=== PATIENT | female | born 1975 | race Caucasian/White ===

== ENCOUNTER 2019-02-25 13:10 | Emergency (ER) | payer MEDICAID ==
[2019-02-25] MEDS ORDERED: Ibuprofen 800 MG Tab ONE (13:30)
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
== END 2019-02-25 14:39 | disposition home or self-care (01) ==
LOC: LB.ED 13:10
DX: M70.21 Olecranon bursitis, right elbow (principal); M93.929 Osteochondropathy, unspecified, unspecified upper arm
CPT/HCPCS: 99283; A9270-GY

== ENCOUNTER 2019-10-26 00:02 | Emergency (ER) | payer MEDICAID ==
[2019-10-26] MEDS ORDERED: LORazepam 1 MG Tab PO ONE (00:15)
[2019-10-26] MEDS ORDERED: Ketorolac 60 MG/2 ML SDV IM ONE (00:16)
[2019-10-26] MEDS ORDERED: Diphtheria,Pertussis(Acell),Tetanus Vaccine 0.5 ML SDV IM ONE (00:16)
--- NOTE | 2019-10-26 00:23 | EDM.PDOC ---
ED HPI GENERAL MEDICAL PROBLEM - General Stated Complaint: stubbed small toe space on left Time Seen by Provider: 10/26/19 00:05 Source of Information: Reports: Patient History Limitations: Reports: Other (anxious) - History of Present Illness INITIAL COMMENTS - FREE TEXT/NARRATIVE: Iesha was well until 10 minutes prior to arrival when she was walking and her foot struck the bottom part of a trash can where the pedal connects to open the lid. It is old and the actual pedal itself is not present, just a metal bar where it would be mounted. She had severe pain and bleeding from the 5th interspace. - Related Data Allergies Allergy/AdvReac Type Severity Reaction Status Date / Time Penicillins Allergy Unknown Other Verified 10/26/19 00:50 Home Meds: Home Meds NK [No Known Home Meds] 02/25/19 [History] ED ROS GENERAL - Review of Systems Review Of Systems: See Below Musculoskeletal: Reports: Foot Pain Skin: Reports: Wound Neurological: Reports: No Symptoms Psychiatric: Reports: Anxiety ED EXAM, GENERAL - Physical Exam Exam: See Below Exam Limited By: Other (anxiety) General Appearance: Alert, WD/WN, Anxious Respiratory/Chest: No Respiratory Distress Cardiovascular: Normal Peripheral Pulses Extremities: Normal Capillary Refill, Other (dried blood just medial to 5th toe ray) Skin Exam: Warm, Dry, Other (inspection between toes reveals small puncture wound, this is cleansed and palpation throughout does not reproduce any bony tenderness) Course - Orders/Labs/Meds Orders: Active Orders 24 hr Category Date Time Status Vaccines to be Administered [RC] PER UNIT ROUTINE Care 10/26/19 00:17 Active Toes Fifth Digit Lt T4 [CR] Stat Exams 10/26/19 00:26 Ordered Meds: Medications Discontinued Medications Generic Name Dose Route Start Last Admin Trade Name Freq PRN Reason Stop Dose Admin Diphtheria/Tetanus/Acell Pertussis 0.5 ml 10/26/19 00:16 10/26/19 00:27 Boostrix IM 10/26/19 00:17 0.5 ml .ONCE ONE Administration Ketorolac Tromethamine 60 mg 10/26/19 00:16 10/26/19 00:21 Toradol IM 10/26/19 00:17 60 mg ONETIME ONE Administration Lorazepam 2 mg 10/26/19 00:15 10/26/19 00:20 Ativan PO 10/26/19 00:16 2 mg ONETIME ONE Administration - Radiology Interpretation Free Text/Narrative:: Foot XR appears negative for fx at bedside Departure - Departure Time of Disposition: 01:00 Disposition: Home, Self-Care 01 Clinical Impression: Puncture wound - Discharge Information Instructions: RICE Therapy for Routine Care of Injuries, [id number] Forms: ED Department Discharge - My Orders Last 24 Hours: My Active Orders 10/26/19 00:17 Vaccines to be Administered [RC] PER UNIT ROUTINE 10/26/19 00:26 Toes Fifth Digit Lt T4 [CR] Stat - Assessment/Plan Last 24 Hours: My Active Orders 10/26/19 00:17 Vaccines to be Administered [RC] PER UNIT ROUTINE 10/26/19 00:26 Toes Fifth Digit Lt T4 [CR] Stat Plan: Encouraged watching carefully and returning with any sx of infection or ongoing pain
[2019-10-26] MEDS ORDERED: traMADol 50 MG Tab ONE (01:00)
[2019-10-26] MEDS ORDERED: Ciprofloxacin 500 MG Tab ONE (01:00)
[2019-10-26] MEDS ORDERED: Bacitracin/Neomycin/Polymyxin B Oint 0.9 GM U/D Packet ONE (01:19)
[2019-10-26] MEDS ORDERED: Bacitracin/Neomycin/Polymyxin B Oint 0.9 GM U/D Packet TOP ONE (01:19)
--- NOTE | 2019-10-26 14:50 | CR ---
DATE OF SERVICE: 10/26/19 CLINICAL DATA: stubbed toe LEFT 5TH TOE: There is soft tissue swelling adjacent to the distal phalanx. No acute fracture or dislocation. [id number] MTDD
== END 2019-10-26 01:17 | disposition home or self-care (01) ==
LOC: LB.ED 00:02
DX: S91.135A Puncture wound without foreign body of left lesser toe(s) without damage to nail, initial encounter (principal); Z88.0 Allergy status to penicillin; Z23 Encounter for immunization; W22.09XA Striking against other stationary object, initial encounter; Y93.01 Activity, walking, marching and hiking
CPT/HCPCS: 73660; 90471; 90715; 96372; 99282; 99283; A9270; J1885

== ENCOUNTER 2020-04-13 21:23 | Emergency (ER) | payer MEDICAID ==
[2020-04-13] MEDS ORDERED: Ketorolac 60 MG/2 ML SDV IM ONE (21:40)
--- NOTE | 2020-04-14 12:20 | CR ---
Date of Service: 04/13/20 Clinical Data: left posterior chest wall pain PA AND LATERAL CHEST: No priors. The heart size is normal. The lungs are clear. No pneumothorax. No pleural effusions. No displaced fractures. There is a sclerotic density noted in the proximal right humerus. Views of the shoulder are recommended to further evaluate this. No other significant findings. [id number] MTDR
--- NOTE | 2020-05-27 07:11 | ER ---
HISTORY OF PRESENT ILLNESS: A 44-year-old lady here with complaints of rib pain on the left posterior chest wall that started today. She denies any falls or injuries. She has not done any activities that could cause rib pain. The patient denies feeling sick. She has not been running a fever. She has not been coughing. OBJECTIVE: GENERAL APPEARANCE: The patient is awake and alert. No obvious respiratory distress. VITAL SIGNS: Reviewed as listed. LUNGS: Clear to auscultation. Deep breathing does slightly induce pain in the left posterior chest wall. Palpation of the left posterior chest wall also just mildly reproduces pain. SKIN: Intact without any discoloration or swelling. CARDIAC: Heart sounds distinct without murmurs. LABORATORY DATA AND X-RAY: Chest x-ray is obtained and is normal. DIAGNOSIS: Chest wall pain. TREATMENT PLAN: [id number] medications, Tylenol and ibuprofen were discussed. The patient is to do light duty activities for a couple of days and then start increasing activities as tolerated. She can apply ice or heat as needed and follow up is p.r.n. RENETTA/JACOB /[id number]
== END 2020-04-13 22:05 | disposition home or self-care (01) ==
LOC: LB.ED 21:23
DX: R07.89 Other chest pain (principal)
CPT/HCPCS: 71046; 96372; 99283; J1885

== ENCOUNTER 2021-12-23 10:26 | Emergency (ER) | payer MEDICAID | END 2021-12-23 12:01 | disposition home or self-care (01) | LOC: LB.ED 10:26 | DX: J02.0 Streptococcal pharyngitis (principal); Z88.0 Allergy status to penicillin | CPT/HCPCS: 87430; 99283; U0002 ==

== ENCOUNTER 2022-01-24 07:09 | Emergency (ER) | payer MEDICAID ==
[2022-01-24 07:28] VITALS: BP 125/75; PULSE 87
[2022-01-24] MEDS: Iodixanol 652 MG/ML 100 ML Bottle IV PRN (08:20)
[2022-01-24] MEDS: Sodium Chloride 0.9% 50 ML SDV FLUSH SCH (08:20)
== END 2022-01-24 09:03 | disposition home or self-care (01) ==
LOC: LB.ED 07:09
DX: L03.213 Periorbital cellulitis (principal); Z88.0 Allergy status to penicillin
CPT/HCPCS: 70487; 99283-25